=== PATIENT | female | born 1995 | race Caucasian/White ===

== ENCOUNTER 2021-03-30 13:22 | Emergency (ER) | payer SELFPAY ==
[2021-03-30 13:46] VITALS: BP 136/80; PULSE 97; RESP 18; TEMP 37.8; O2SAT 100
--- NOTE | 2021-03-30 15:09 | ED.URI ---
HPI - URI/Sore Throat General Chief Complaint: Upper Respiratory Infection Stated Complaint: aches sinus headache sweats Source: patient and RN notes reviewed Mode of arrival: ambulatory History of Present Illness HPI Narrative: This is a 25-year-old female presented herself to urgent care with complaints of congestion, sore throat, headache, and body aches. According to patient about 4 5 days ago she started developing congestion last night she is experience a sore throat headache body aches and chills. The patient denies SOB, CP, palpitation, extremity numbness, lightheadedness, dizziness, constipation, diarrhea, chills, or fever. Related Data Allergies Allergy/AdvReac Type Severity Reaction Status Date / Time No Known Allergies Allergy Verified 03/30/21 14:51 Review of Systems Review of Systems: A 14 organ system Review of Systems was performed and pertinent positives included in the HPI, otherwise remaining ROS is negative. [facility] [place] Family History Family History (Updated 03/30/21 @ 15:11 by EMELI [id number]) Other Family history non-contributory Exam Narrative: GENERAL: This is a well-nourished, well-developed patient, in no apparent distress. HEAD: normocephalic, atraumatic. EYES: PERRL. Sclera clear/white. Vision is grossly intact. EARS: External ears normal, auditory canals clear and without drainage, TMs normal without perforation. Hearing grossly intact. NOSE: External nose normal with no obvious nasal discharge, nares without redness, no rhinorrhea. THROAT: Mucous membranes moist, posterior pharynx clear. NECK: Neck supple, non-tender without lymphadenopathy, masses or thyromegaly. CARDIOVASCULAR: Regular rate and rhythm without murmurs, gallops, or rubs. RESPIRATORY: Clear to auscultation. Breath sounds equal bilaterally. No wheezes, rales, or rhonchi. GASTROINTESTINAL: Abdomen soft, non-tender, nondistended. Bowel sounds are active. No hepato-splenomegaly, or palpable masses. No guarding. SKIN: warm, intact with no suspicious lesions or rash, good texture and turgor. NEURO: awake, alert, and oriented to person, place and time. There were no obvious focal neurologic abnormalities. Steady gait EXTREMITIES: Normal range of motion. No edema. No calf tenderness. Negative Homans sign bilaterally. BACK: Nontender without deformity or crepitance. No flank tenderness. Course Course Emergency Course: Patient will be treated for symptoms with Claritin, Flonase and guaifenesin Vital Signs Vital signs: Vital Signs Temperature 100.0 F H 03/30/21 13:46 Pulse Rate 97 03/30/21 13:46 Respiratory Rate 18 03/30/21 13:46 Blood Pressure 136/80 03/30/21 13:46 Pulse Oximetry 100 03/30/21 13:46 Temperature 100.0 F H 03/30/21 13:46 Pulse Rate 97 03/30/21 13:46 Respiratory Rate 18 03/30/21 13:46 Blood Pressure 136/80 03/30/21 13:46 Pulse Oximetry 100 03/30/21 13:46 MDM - URI/Sore Throat MDM Narrative Medical decision making narrative: Patient will be treated for viral illness Differential Diagnosis Differential diagnosis: Likely upper respiratory infection, viral infection, bronchitis, influenza and pharyngitis Lab Data Attestation: I reviewed the patient's lab results. Labs: Influenza A Screen Negative Reference Range: Negative Influenza B Screen Negative Reference Range: Negative Strep Screen Presumptive Negative *(Reference Range: Negative)* Discharge Plan Discharge Clinical Impression: Viral infection Patient Disposition: Home, Self-Care Condition: Stable Instructions: Antibiotic Form, Viral Syndrome (ED) Additional Instructions: This is likely viral illness, no antibiotic is needed at this time. Treatment is aimed toward your specific symptoms. You must treat your symptoms in order to fe
[2021-03-30 15:17] VITALS: TEMP 37.7
[2021-03-30] MEDS: ACETAMINOPHEN 325 MG TABLET 650 MG PO (15:17)
== END 2021-03-30 15:30 | disposition home or self-care (01) ==
PROVIDERS: Emergency Provider Nurse Practitioner
DX: B34.9 Viral infection, unspecified (principal); Z20.822 Contact with and (suspected) exposure to COVID-19
CPT/HCPCS: 87081; 87804; 87880; 99213; A9270; G0463